=== PATIENT | male | born 1960 | race African-American/Black ===

== ENCOUNTER 2017-05-15 07:37 | Day surgery (SDC) | payer OTHER ==
[2017-05-15] MEDS ORDERED: NS 500 ML IV 500 ML IV ONE (07:48)
[2017-05-15] MEDS ORDERED: TETRACAINE 0.5% OPHTH 1 DOSE AFFEYE ONE (08:05)
[2017-05-15] MEDS ORDERED: D50W ABBOJECT SYR IV ONE (08:09)
[2017-05-15] MEDS ORDERED: D50W ABBOJECT SYR ONE (08:09)
[2017-05-15] MEDS ORDERED: VIGAMOX 0.5% OPHTH 1 DOSE AFFEYE ONE ×3 (08:10→08:20)
[2017-05-15] MEDS ORDERED: PROLENSA OPHTH 1 DOSE AFFEYE ONE (08:21)
[2017-05-15] MEDS ORDERED: ALPHAGAN-P OPHTH 1 DOSE AFFEYE ONE (08:22)
[2017-05-15] MEDS ORDERED: MYDRIACIL OPHTH 1 DOSE AFFEYE ONE ×3 (08:23→08:25)
[2017-05-15] MEDS ORDERED: CYCLOGYL 1% OPHTH 1 DOSE OP ONE ×3 (08:23→08:25)
[2017-05-15] MEDS ORDERED: AK-DILATE 2.5% OPHTH 1 DOSE OP ONE ×2 (08:24→08:25)
[2017-05-15] MEDS ORDERED: D5 LR 1000 ML 1,000 ML IV ONE (08:32)
[2017-05-15 08:51] VITALS: BP 182/85
== END 2017-05-15 09:19 | disposition home or self-care (01) ==
LOC: SURG1 07:37
PROVIDERS: ATTEND Ophthalmology
PROC: 08RJ3JZ Replacement of Right Lens with Synthetic Substitute, Percutaneous Approach (ICD-10-PCS; principal; 2017-05-15 10:30)
PROC: 08DJ3ZZ Extraction of Right Lens, Percutaneous Approach (ICD-10-PCS; principal; 2017-05-15 10:30)
DX: H25.011 Cortical age-related cataract, right eye (principal); H25.041 Posterior subcapsular polar age-related cataract, right eye; H52.223 Regular astigmatism, bilateral; E11.3393 Type 2 diabetes mellitus with moderate nonproliferative diabetic retinopathy without macular edema, bilateral
CPT/HCPCS: 36415; 82947; J3490; J7120

== ENCOUNTER 2017-05-15 09:15 | Emergency (ER) | payer OTHER ==
[2017-05-15 09:27] VITALS: BP 185/113; BMI 32.2
--- NOTE | 2017-05-15 09:33 | DR.GENAD ---
HPI - PCP Primary Care Physician: kris - HPI Comment HPI Comment: PATIENT FASTED FOR EYE SURGERY THIS AM. WHILE WAITING FOR SURGERY, HE TOLD THE STAFF HE FELT HIS GLUCOSE WAS LOW. WHEN GLUCOSE WAS CHECK, IT WAS LOW. GIVEN 1 AMPLE OF D50. HERE FOR FUURTHER EVALUATION. PATIENT IS WEAK BUT DENIES CHEST PAIN. - Complaint/Symptoms Chief Complaint Doctors Comments: LOW BLOOD GLUCOSE. Chief Complaint:: patient was to have eye surgery this morning but patient blood sugar was 45 and they gave 1 amp d50 and sent him to the er. - Nurses notes reviewed Nurses Notes Review: Yes - Source History Provided: Patient - Mode of Arrival Mode of Arrival: Stretcher - Timing Onset of Chief Complaint: 05/15/17 Came on: Suddenly - Duration Duration: Constant Duration: Hours PMH - PMH Past Medical History: Yes Past Medical History: Anemia, Arthritis, CHF, Depression, Diabetes, Hypertension Past Surgical History: Yes - Family History History of Family Medical Conditions: No - Social History Does patient currently use any type of tobacco product: No Have you used tobacco products in the last 12 months: No Type of Tobacco Use: None Does any household member use tobacco: No Alcohol Use: None Do you use any recreational Drugs:: No Lives With: Alone, Family Lives Where: Home - infectious screening In the last 2 months have you had wt loss of >10#?: NO Have you had fever, night sweats or hemotysis?: No Have you traveled outside the country in the last 6 months?: No Isolation: Standard ROS - Review of Systems Constitutional: Weakness, Fatigue Eyes: Blurred Vision. negative: Eye Pain, Discharge ENTM: negative: Ear Pain, Nose Discharge, Nose Congestion, Throat Pain Respiratoy: No Symptoms Reported, Non-Productive Cough, Short of Breath. negative: Wheezing, Hemoptysis Cardiovascular: No Symptoms Reported. negative: Edema, Palpitations Gastrointestinal/Abdominal: No Symptoms Reported. negative: Abdominal Pain, Nausea, Vomiting Genitourinary: negative: Dysuria, Frequency, Hematuria Neurological: Weakness, Dizziness Musculoskeletal: No Symptoms Reported Integumentary: No Symptoms Reported Hematologic/Lymphatic: No Symptoms Reported Endocrine: No Symptoms Reported, Flushing. negative: Increased Thirst, Increased Urine All Other Systems: Reviewed and Negative PE - Vital Signs Vitals: Temperature 98.9 F Pulse Rate 57 Respiratory Rate 16 Blood Pressure 185/113 O2 Sat by Pulse Oximetry 99 - General Limitations: No Limitations General Appearance: Alert - Head Head Exam: Normal Inspection - Eyes Eye exam: Normal Appearance - ENT ENT Exam: Normal External Ear Exam External Ear Exam: Normal External Inspection TM/Canal Exam: Bilateral Normal Mouth Exam: Normal Inspection Throat Exam: Normal Inspection - Neck Neck Exam: Trachea Midline - Chest Chest Inspection: Symmetric Chest Wall Rise - Respiratory Respiratory Exam: Normal Lung Sounds Bilat Respiratory Exam: Bilateral Rhonchi, Upper Rhonchi, Lower Rhonchi - Cardiovascular Cardiovascular Exam: Regular Rate, Normal Rhythm, Normal Heart Sounds - Abdominal Exam Abdominal Exam: Normal Inspection, Normal Bowel Sounds, Soft. negative: Tenderness - Extremities Extremities Exam: Normal Inspection - Back Back Exam: Normal Inspection - Neurologic Neurological Exam: Alert, Oriented X3 - Psychiatric Psychiatric Exam: Normal Affect, Normal Mood - Skin Skin Exam: Normal Color MDM - Additional Information Additional Information Obtained From: Family - Differential Diagnosis Differential Diagnosis: HYPOGLYCEMIA, HYPERTENSION Course - Treatment Treatment: SEE ORDERS. PATIENT GIVEN FOOD ABD BP MED IN ED. CONTINUE TO IMPROVE. - Education/Counseling Education/Counseling: Patient, Family, Education Educated On: Treatment, Diagnosis, Needs for Follow Up ROR - Labs Reviewed Laboratory Results Reviewed?: Yes Result Diagrams: 05/15/17 09:38 05/15/17 09:38 Laboratory: WBC 4.6 X10^3/uL (3.6-10.0) 05/15/17 09:38 RBC 2.52 X10^6/uL (4.7-6.0) L 05/15/17 09:38 Hgb 8.1 g/dL (13.5-18.0) L 05/15/17 09:38 Hct 24.0 % (42.0-54.0) L 05/15/17 09:38 MCV 95.2 fL (80.0-100.0) 05/15/17 09:38 MCH 32.2 pg (27.0-34.0) 05/15/17 09:38 MCHC 33.8 g/dL (33.0-35.0) 05/15/17 09:38 RDW 15.4 % (11.6-16.5) 05/15/17 09:38 Plt Count 145 X10^3/uL (150.0-450.0) L 05/15/17 09:38 MPV 8.9 fL (7.4-11.0) 05/15/17 09:38 Neut % 65.0 % (42.0-75.0) 05/15/17 09:38 Lymph % 18.9 % (21.0-51.0) L 05/15/17 09:38 [place] % 13.6 % (0.0-13.0) H 05/15/17 09:38 Eos % 1.6 % (0.9-2.9) 05/15/17 09:38 Baso % 0.9 % (0.2-1.0) 05/15/17 09:38 Neut # 3.0 x10^3/uL (2.2-4.8) 05/15/17 09:38 Lymph # 0.9 X10^3/uL (1.3-2.9) L 05/15/17 09:38 [place] # 0.6 x10^3/uL (0.3-0.8) 05/15/17 09:38 Eos # 0.1 x10^3/uL (0.0-0.2) 05/15/17 09:38 Baso # 0.0 X10^3/uL (0.0-0.1) 05/15/17 09:38 Absolute Nucleated RBC 0.1 /100WBC 05/15/17 09:38 Sodium 144 mmol/L (136-145) 05/15/17 09:38 Corrected Sodium TNP 05/15/17 09:38 Potassium 4.1 mmol/L (3.5-5.1) 05/15/17 09:38 Chloride 111 mmol/L (98-107) H 05/15/17 09:38 Carbon Dioxide 19.7 mmol/L (21-32) L 05/15/17 09:38 BUN 66 mg/dL (7-18) H 05/15/17 09:38 Creatinine 4.79 mg/dL (0.70-1.30) H 05/15/17 09:38 Est GFR (MDRD) Af Amer 16 (>60) L 05/15/17 09:38 Est GFR (MDRD) Non-Af 13 (>60) L 05/15/17 09:38 Glucose 52 mg/dL (65-99) L 05/15/17 09:38 POC Glucose (mg/dL) 82 mg/dL (65-99) 05/15/17 10:26 Calcium 8.0 mg/dL (8.5-10.1) L 05/15/17 09:38 Corrected Calcium 9.1 mg/dL (8.5-10.1) 05/15/17 09:38 Total Bilirubin 3.60 mg/dL (0.2-1.0) H 05/15/17 09:38 AST 28 Units/L (15-37) 05/15/17 09:38 ALT 36 Units/L (12-78) 05/15/17 09:38 Alkaline Phosphatase 521 Units/L (46-116) H 05/15/17 09:38 Total Protein 7.5 g/dL (6.4-8.2) 05/15/17 09:38 Albumin 2.6 g/dL (3.4-5.0) L 05/15/17 09:38 Globulin 4.9 g/dL (2.5-4.5) H 05/15/17 09:38 Albumin/Globulin Ratio 0.5 Ratio (1.1-2.1) L 05/15/17 09:38 - Diagnosis Discharge Problem: Hypoglycemia Hypertension Qualifiers: Hypertension type: essential hypertension Qualified Code(s): I10 - Essential ( primary) hypertension - Discharge Plan Disposition: 01 HOME, SELF-CARE Condition: Stable - Follow ups/Referrals Follow ups/Referrals: [facility] [Primary Care Provider] - 3 days - Instructions Instructions: Hypertension, [id number], Hypoglycemia, [id number] Additional Instructions: RETURN TO ED IF WORSE.
[2017-05-15 09:48] LABS: BASOPHILS % (AUTO) 0.9 % (0.2-1.0); EOSINOPHILS # (AUTO) 0.1 x10^3/uL (0.0-0.2); EOSINOPHILS % (AUTO) 1.6 % (0.9-2.9); HEMOGLOBIN 8.1 g/dL (13.5-18.0); LYMPHOCYTES # (AUTO) 0.9 X10^3/uL (1.3-2.9); LYMPHOCYTES % (AUTO) 18.9 % (21.0-51.0); MEAN CORPUSCULAR HEMOGLOBIN 32.2 pg (27.0-34.0); MEAN CORPUSCULAR HGB CONC 33.8 g/dL (33.0-35.0); MEAN CORPUSCULAR VOLUME 95.2 fL (80.0-100.0); MEAN PLATELET VOLUME 8.9 fL (7.4-11.0); MONOCYTES # (AUTO) 0.6 x10^3/uL (0.3-0.8); MONOCYTES % (AUTO) 13.6 % (0.0-13.0); PLATELET COUNT 145 X10^3/uL (150.0-450.0); RED BLOOD COUNT 2.52 X10^6/uL (4.7-6.0); RED CELL DISTRIBUTION WIDTH 15.4 % (11.6-16.5); WHITE BLOOD COUNT 4.6 X10^3/uL (3.6-10.0)
[2017-05-15 10:00] LABS: ALANINE AMINOTRANSFERASE 36 Units/L (12-78); ALBUMIN 2.6 g/dL (3.4-5.0); ALKALINE PHOSPHATASE 521 Units/L (46-116); ASPARTATE AMINO TRANSFERASE 28 Units/L (15-37); BLOOD UREA NITROGEN 66 mg/dL (7-18); CARBON DIOXIDE 19.7 mmol/L (21-32); CHLORIDE 111 mmol/L (98-107); COR CA(FOR HYPOALB) 9.1 mg/dL (8.5-10.1); CREATININE 4.79 mg/dL (0.70-1.30); SODIUM 144 mmol/L (136-145); TOTAL PROTEIN 7.5 g/dL (6.4-8.2); eGFR BLACK RACES 16 (>60); eGFR NON BLACK RACES 13 (>60)
[2017-05-15] MEDS ORDERED: CATAPRES TAB 0.1 MG PO ONE (10:14)
[2017-05-15] MEDS ORDERED: CATAPRES TAB 0.1 MG ONE (10:18)
[2017-05-16] MEDS ORDERED: NORVASC TAB 5 MG PO ONE (10:15)
== END 2017-05-15 12:05 | disposition home or self-care (01) ==
LOC: ER 09:15
DX: E16.2 Hypoglycemia, unspecified (principal); I10 Essential (primary) hypertension
CPT/HCPCS: 36415; 80053; 85025; 96365; 99283

== ENCOUNTER 2017-05-29 07:15 | Day surgery (SDC) | payer OTHER ==
[~2017-05-29 07:15] MED LIST: AK-DILATE 2.5% OPHTH 1 DOSE OP ONE; ALPHAGAN-P OPHTH 1 DOSE AFFEYE ONE; CYCLOGYL 1% OPHTH 1 DOSE OP ONE; DUREZOL OPHTH 1 DOSE AFFEYE ONE; MYDRIACIL OPHTH 1 DOSE AFFEYE ONE; NS 500 ML IV 500 ML IV ONE; PROLENSA OPHTH 1 DOSE AFFEYE ONE; TETRACAINE 0.5% OPHTH 1 DOSE AFFEYE ONE; VIGAMOX 0.5% OPHTH 1 DOSE AFFEYE ONE; VISINE-A OPHTH 1 DOSE AFFEYE ONE
[2017-05-29] MEDS ORDERED: DUREZOL OPHTH 1 DOSE AFFEYE ONE (07:45)
[2017-05-29] MEDS ORDERED: TETRACAINE 0.5% OPHTH 1 DOSE AFFEYE ONE ×5 (07:50→09:43)
[2017-05-29] MEDS ORDERED: VIGAMOX 0.5% OPHTH 1 DOSE AFFEYE ONE ×6 (07:55→10:09)
[2017-05-29] MEDS ORDERED: PROLENSA OPHTH 1 DOSE AFFEYE ONE (08:06)
[2017-05-29] MEDS ORDERED: ALPHAGAN-P OPHTH 1 DOSE AFFEYE ONE (08:07)
[2017-05-29] MEDS ORDERED: VISINE-A OPHTH 1 DOSE AFFEYE ONE (08:08)
[2017-05-29] MEDS ORDERED: CYCLOGYL 1% OPHTH 1 DOSE OP ONE ×3 (08:09→08:15)
[2017-05-29] MEDS ORDERED: AK-DILATE 2.5% OPHTH 1 DOSE OP ONE ×3 (08:10→08:16)
[2017-05-29] MEDS ORDERED: MYDRIACIL OPHTH 1 DOSE AFFEYE ONE ×3 (08:11→08:17)
[2017-05-29] MEDS ORDERED: DUOVISC IO ONE ×2 (08:40→09:43)
[2017-05-29] MEDS ORDERED: ADRENALINE CHL INJ IJ ONE ×2 (08:40→09:43)
[2017-05-29] MEDS ORDERED: XYLOCAINE-MPF 1% IJ ONE ×2 (08:40→09:43)
[2017-05-29] MEDS ORDERED: BETADINE OPHTH SOLN 5% EACHEYE ONE ×2 (08:40→09:15)
[2017-05-29] MEDS ORDERED: BSS OPHTH (PLAIN) 500 ML with VANCOMYCIN HCL 500 MG VIAL 25 MG, ADRENALINE CHL INJ 1 MG IR ONE ×6 (08:41)
[2017-05-29] MEDS ORDERED: VISCOAT 0.5 ML IO ONE (09:51)
[2017-05-29 10:37] VITALS: BP 175/89
[2017-05-29] MEDS ORDERED: DIPRIVAN VIAL ONE (15:36)
== END 2017-05-29 10:35 | disposition home or self-care (01) ==
LOC: SURG1 07:15
PROVIDERS: ATTEND Ophthalmology
PROC: 08DJ3ZZ Extraction of Right Lens, Percutaneous Approach (ICD-10-PCS; principal; 2017-05-29 09:00)
PROC: 08RJ3JZ Replacement of Right Lens with Synthetic Substitute, Percutaneous Approach (ICD-10-PCS; principal; 2017-05-29 09:00)
DX: H25.11 Age-related nuclear cataract, right eye (principal); H25.011 Cortical age-related cataract, right eye; H25.041 Posterior subcapsular polar age-related cataract, right eye; H52.221 Regular astigmatism, right eye
CPT/HCPCS: A4217; J0170; J3370; J3490